=== PATIENT | female | born 1960 | race Caucasian/White ===

== ENCOUNTER 2020-09-27 14:00 | Outpatient (REF) | payer MEDICARE, MEDICAID, SELFPAY | END 2020-09-27 14:01 | disposition home or self-care (01) | LOC: HO.LNP 14:00 | PROVIDERS: Visit Provider Hospitalist | DX: Z13.89 Encounter for screening for other disorder (principal) ==

== ENCOUNTER 2020-09-27 14:37 | Outpatient (REF) | payer MEDICARE, MEDICAID, SELFPAY | END 2020-09-27 14:38 | disposition home or self-care (01) | LOC: HO.LAB 14:37 | PROVIDERS: Visit Provider Hospitalist | DX: Z20.822 Contact with and (suspected) exposure to COVID-19 (principal) | CPT/HCPCS: 36415; U0003 ==